=== PATIENT | male | born 1960 | race Caucasian/White ===

== ENCOUNTER 2016-07-14 11:25 | Inpatient (IN) | payer OTHER ==
--- NOTE | ~2016-07-14 | DS ---
Discharge Summary [place] [id number] [facility] [place]. [address] NAME: WENDIE WITT : 60 STATUS : ADM IN [facility]#: [id number] AGE: 56 ADM/REG DATE : 07/14/16 MR#: [id number] REPORT SERV DATE: 07/15/16 DICTATED BY: RANJAN DESAI DATE: 07/15/16 REPORT STATUS : Draft TRANSCRIBED BY: MODL DATE: 07/15/16 ADMISSION DATE: 07/14/2016 DISCHARGE DATE: 07/15/2016 FINAL HOSPITAL DIAGNOSES: 1. GI bleed felt secondary to hemorrhoids. 2. Esophagitis. 3. Nonalcoholic steatohepatitis. 4. Diabetes. 5. Obstructive sleep apnea. 6. Chronic pain. CONSULTATIONS: GI. PROCEDURES: 1. Upper and lower endoscopy done on the showing esophagitis of grade 2 esophageal varices, portal hypertensive gastropathy, erythematous mucosa in the antrum. 2. Colonoscopy showing diverticulosis and hemorrhoids. CURRENT PHYSICAL FINDINGS AND HISTORY OF PRESENT ILLNESS: Please see dictated H and P by myself. In brief, the patient is a 56-year-old male who presented with the above findings and rectal bleeding. Vital signs at time of admission, blood pressure was 166/72, temperature was 97.7 and he has remained afebrile, heart rates have been in the 60s to 70s. LAB WORK: Initial BMP was unremarkable. BNP was 312 and ammonia was 35. White count was 7.1. Initial hemoglobin was 8.6, subsequent hemoglobins were 8.4, 8.8, and 7.9. The patient's baseline is approximately 9. Platelets were 129 and 139, respectively. HOSPITAL COURSE: The patient was admitted. He was started on IV fluids. Home medications were reviewed and ordered appropriately. GI was consulted. He initially had some hypotension, which was felt secondary to medications given in the ER. GI saw him the night of admission, prepped him for a colonoscopy the following day. Serial labs were ordered and transfusion parameters given. He was initially started on antibiotics and reasonable pain medicines were given. He had an uneventful evening. The following day, he underwent his endoscopy with the above findings. He had no further difficulties and was cleared for discharge the following day by GI. I did discuss treatment plans with the patient. He voiced understanding. The patient's and family's questions were answered. DISPOSITION: The patient is discharged home. MEDICATIONS: Celexa 20 one per day, B12 1000 one per day, Ativan 1 mg b.i.d., Protonix 40, Prilosec 40. It was confirmed that patient is taking both Lyrica 100 b.i.d., Kelly 250 b.i.d., Opana ER 10 q.12, Roxicodone 10 t.i.d., Aldactone 100, Lasix 40 t.i.d., Flexeril 10 b.i.d. with one additional dose p.r.n., Amoxil 500 b.i.d., lactulose 30 b.i.d. p.r.n. constipation, cyproheptadine 4 mg t.i.d., Humulin R 75 t.i.d., Glyxambi 25/5 daily, Inderal 60, Benefiber one tablespoon t.i.d. Discharge Summary [address] [address] NAME: WENDIE WITT : 60 STATUS : ADM IN PAT#: [id number] AGE: 56 ADM/REG DATE : 07/14/16 MR#: [id number] REPORT SERV DATE: 07/15/16 DICTATED BY: RANJAN DESAI DATE: 07/15/16 REPORT STATUS : Draft TRANSCRIBED BY: JORGE ALBERTO DATE: 07/15/16 He is to return for any recurrent bleeding. Follow up in GI Clinic in two weeks. CHIQUITA/JORGE ALBERTO Ranjan Desai M.D. / [id number] CC: Ranjan Desai M.D.
--- NOTE | ~2016-07-14 | EGD ---
EGD REPORT [facility] [address] [place] [address] NAME: KAREL LICONA : 60 STATUS : ADM IN PAT#: [id number] AGE: 56 ADM/REG DATE : 07/14/16 MR#: [id number] REPORT SERV DATE: 07/15/16 DICTATED BY: MEÑO BELLAMY DATE: 07/15/16 REPORT STATUS : Draft TRANSCRIBED BY: [employer] DATE: 07/15/16 Endoscopy Center Patient Name: Karel Licona Date of : 1960 Attending MD: MEÑO BELLAMY MD Procedure Date No Time: 07/15/2016 Procedure: Colonoscopy Indications: Rectal bleeding Medicines: Monitored Anesthesia Care Complications: No immediate complications. Procedure: Pre-Anesthesia Assessment: - ASA Grade Assessment: III - A patient with severe systemic disease. After I obtained informed consent, the scope was passed under direct vision. Throughout the procedure, the patient's blood pressure, pulse, and oxygen saturations were monitored continuously. The PCF H190L [id number] was introduced through the anus and advanced to the cecum, identified by appendiceal orifice and ileocecal valve. The colonoscopy was performed without difficulty. The patient tolerated the procedure well. The quality of the bowel preparation was adequate. Findings: The digital rectal exam was normal. Pertinent negatives include no palpable rectal lesions. Multiple diverticula were found in the sigmoid colon. Hemorrhoids were found during retroflexion and were moderate. Impression: - Diverticulosis in the sigmoid colon. - Hemorrhoids. Recommendation: - Patient has a contact number available for emergencies. The signs and symptoms of potential delayed complications were discussed with the patient. Return to normal activities tomorrow. Written discharge instructions were provided to the patient. - Regular diet. - Use Analpram HC Cream 2.5%: Apply externally BID. - Use Benefiber one teaspoon PO TID. - Discharge patient to home. - Return to GI clinic in 2 months. Procedure Code(s): --- Professional --- 28503, Colonoscopy, flexible, proximal to splenic EGD REPORT [facility] [address] [place]. [address] NAME: KAREL LICONA : 60 STATUS : ADM IN [facility]#: [id number] AGE: 56 ADM/REG DATE : 07/14/16 MR#: [id number] REPORT SERV DATE: 07/15/16 DICTATED BY: MEÑO BELLAMY DATE: 07/15/16 REPORT STATUS : Draft TRANSCRIBED BY: [employer] DATE: 07/15/16 flexure; diagnostic, with or without collection of specimen(s) by brushing or washing, with or without colon decompression (separate procedure) Diagnosis Code(s): --- Professional --- K64.9, Unspecified hemorrhoids K57.30, Diverticulosis of large intestine without perforation or abscess without bleeding K62.5, Hemorrhage of anus and rectum CPT copyright 2013 [employer]. All rights reserved. The codes documented in this report are preliminary and upon ladle repairman review may be revised to meet current compliance requirements. MEÑO BELLAMY MD 07/15/2016 9:50 AM This report has been signed electronically. Number of Addenda: 0 Note Initiated On: 07/15/2016 9:06 AM Scope Withdrawal Time 0 hours 7 minutes 14 seconds [address] [facility] [place] [address]
--- NOTE | ~2016-07-14 | HP ---
History And Physical [place] [address] [place]. [address] NAME: WENDIE LICONA : 60 STATUS : ADM Cheri PAT#: [id number] AGE: 56 ADM/REG DATE : 07/14/16 MR#: [id number] REPORT SERV DATE: 07/14/16 DICTATED BY: RANJAN DESAI DATE: 07/14/16 REPORT STATUS : Draft TRANSCRIBED BY: MODL DATE: 07/14/16 DATE OF ADMISSION: 07/14/2016 CHIEF COMPLAINT: Rectal bleeding. HISTORY OF PRESENT ILLNESS: Mr. Licona is a 56-year-old male. He has a past medical history significant. 1. PATEL. 2. Diabetes. 3. KRISTINA. 4. Chronic pain and anxiety. He also has a history of esophageal varices, last banded in January 2016. 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 Reilly. The patient keeps routine followup appointments with Dr. Reilly as well as PCP. He has liver disease. He has apparently been fairly slowly progressive. He has actually done quite well since his last hospital discharge. He has not had any of the bleeding episodes. He has not in the past, been diagnosed with an elevated ammonia. His last paracentesis was several years ago, but as mentioned he has been told that his disease is progressing. He presented today after two episodes of bright red blood per rectum starting approximately 8 o'clock this morning. First bowel movement he estimated at 1 to 1-1/2 cups of stool and blood. He states it was bright red. This stool seemed to be brown stool mixed with blood. It was not black and the stool was not maroon. His second episode was approximately 3/4 cup. He has had no further since. He is specific that there was no hematemesis. Currently, he is somewhat sedate, but he was given a mg of Ativan IV. Additional history from his family they states he has been having periods where he has been just generalized weak. He feels his ascites may be more than normal. He has not had any fevers, chills. He is having some mild abdominal pain today and they state he has had periods where he just seems to get very confused and then sleepy. PAST MEDICAL HISTORY: In addition to above is hypertension, lupus, RA, and CAD. PAST SURGICAL HISTORY: He has had one stent placed. He has had tonsillectomy, adenoidectomy, and uvula surgery for his KRISTINA. MEDICATIONS: His list is currently pending. ALLERGIES: MORPHINE, ERYTHROMYCIN, TRAMADOL AND HE HAS BEEN ADVISED TO AVOID TYLENOL. FAMILY HISTORY: Both parents . Father of old age. Mother in 1989 in her late 50s. SOCIAL HISTORY: Rpll-ebqz-gnn-day smoker. No EtOH. REVIEW OF SYSTEMS: HEENT: He has complained of dizziness and weakness. 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 Apparently, an echocardiogram was done and normal. History And Physical [address] [address] NAME: WENDIE LICONA : 60 STATUS : ADM Cheri PAT#: [id number] AGE: 56 ADM/REG DATE : 07/14/16 MR#: [id number] REPORT SERV DATE: 07/14/16 DICTATED BY: RANJAN DESAI DATE: 07/14/16 REPORT STATUS : Draft TRANSCRIBED BY: JORGE ALBERTO DATE: 07/14/16 PULMONARY: Exertional dyspnea. GI: As covered in HPI. : No complaints. NEUROMUSCULOSKELETAL: Just a complaint of weakness. OBJECTIVE: VITAL SIGNS: On exam, presenting vital signs, BP was 166/72, temperature was 97, pulse 81, respirations 18. Current blood pressure is 90s over 60s, but he has been sedated, his heart rate is 72. GENERAL: He is easily arousable, awake, appropriate, answers questions appropriately. Currently complaining of generalized pain. HEENT: Normocephalic, atraumatic. NECK: Supple. HEART: Regular rate and rhythm. LUNGS: Clear to auscultation. ABDOMEN: Obese, minimally tender. Does have bowel sounds. EXTREMITIES: 1+ edema. LAB: Sodium 137, potassium 5, chloride 107, CO2 of 20, BUN and creatinine 18 and 0.95, sugars 264, calcium 7.8. Alkaline phosphatase is 301. White count 7.1, H and H are 8.6 and 30.9, platelets 129. INR is 1.2. Hemoglobin was 9.8 in April. ASSESSMENT/PLAN: 1. Episode of rectal bleeding. He presented with a hemoglobin slightly down from his previous in April. He does have a history of varices, but no reported hematemesis. We will type cross follow serial H and H and consult GI. 2. Nonalcoholic steatohepatitis, he may be having progression with his ascites and/or elevated pneumonia. We will recheck levels appropriately. 3. Diabetes, home medications. 4. Coronary artery disease, monitor present. 5. Further recommendations pending lab and any further bleeding and stability of vitals. TLF/MODL Ranjan Desai M.D. / [id number] CC: Ranjan Desai M.D.
--- NOTE | ~2016-07-14 | EGD ---
EGD REPORT [facility] [address] [place] [address] NAME: KAREL LICONA : 60 STATUS : ADM IN PAT#: [id number] AGE: 56 ADM/REG DATE : 07/14/16 MR#: [id number] REPORT SERV DATE: 07/15/16 DICTATED BY: MEÑO BELLAMY DATE: 07/15/16 REPORT STATUS : Draft TRANSCRIBED BY: [employer] DATE: 07/15/16 Endoscopy Center Patient Name: Karel Licona Date of : 1960 Attending MD: MEÑO BELLAMY MD Procedure Date No Time: 07/15/2016 Procedure: Upper GI endoscopy Indications: Hematochezia Medicines: Monitored Anesthesia Care Complications: No immediate complications. Procedure: Pre-Anesthesia Assessment: - ASA Grade Assessment: III - A patient with severe systemic disease. After obtaining informed consent, the endoscope was passed under direct vision. Throughout the procedure, the patient's blood pressure, pulse, and oxygen saturations were monitored continuously. The GIF H190 [id number] was introduced through the mouth, and advanced to the second part of duodenum. The upper GI endoscopy was accomplished without difficulty. The patient tolerated the procedure well. Findings: Moderately severe esophagitis with no bleeding was found in the entire esophagus. Brushings were obtained in the middle third of the esophagus and in the lower third of the esophagus for RORO prep. Grade II varices were found in the lower third of the esophagus. Mild portal hypertensive gastropathy was found in the gastric fundus. Patchy mildly erythematous mucosa without bleeding was found in the gastric antrum. Biopsies were taken with a cold forceps for histology. The duodenal bulb and 2nd part of the duodenum were normal. Impression: - Moderately severe candidiasis esophagitis. - Grade II esophageal varices. - Portal hypertensive gastropathy. - Erythematous mucosa in the antrum. Biopsied. - Normal duodenal bulb and 2nd part of the duodenum. Recommendation: - Await pathology results. - Nystatin suspension 1 million units PO QID for 10 days. Procedure Code(s): --- Professional --- 29242, Esophagogastroduodenoscopy, flexible, transoral; with biopsy, single or multiple EGD REPORT [facility] [address] [place]. [address] NAME: KAREL LICONA : 60 STATUS : ADM IN [facility]#: [id number] AGE: 56 ADM/REG DATE : 07/14/16 MR#: [id number] REPORT SERV DATE: 07/15/16 DICTATED BY: MEÑO BELLAMY DATE: 07/15/16 REPORT STATUS : Draft TRANSCRIBED BY: [employer] DATE: 07/15/16 Diagnosis Code(s): --- Professional --- B37.81, Candidal esophagitis I85.00, Esophageal varices without bleeding K76.6, Portal hypertension K31.89, Other diseases of stomach and duodenum K31.9, Disease of stomach and duodenum, unspecified K92.1, Melena CPT copyright 2013 [employer]. All rights reserved. The codes documented in this report are preliminary and upon care consultant review may be revised to meet current compliance requirements. MEÑO BELLAMY MD 07/15/2016 9:34 AM This report has been signed electronically. Number of Addenda: 0 Note Initiated On: 07/15/2016 9:21 AM Scope Withdrawal Time 0 hours 0 minutes 0 seconds [address] [phone]
--- NOTE | ~2016-07-14 | CN ---
Consultation Report [facility] [address] [place]. [address] NAME: WENDIE LICONA : 60 STATUS : ADM Cheri PAT#: [id number] AGE: 56 ADM/REG DATE : 07/14/16 MR#: [id number] REPORT SERV DATE: 07/14/16 DICTATED BY: OMAR YOUNG DATE: 07/14/16 REPORT STATUS : Draft TRANSCRIBED BY: MODL DATE: 07/14/16 GI CONSULTATION DATE OF CONSULTATION: 07/14/2016 REASON FOR CONSULTATION: Lower GI bleed. HISTORY OF PRESENT ILLNESS: Mr. Licona is a 56-year-old male patient, who is known to our group, who presented to [facility] on 07/14 with a chief complaint of acute- onset lower GI bleed this morning. He and his state that he was woken early this morning with complaints of fecal urgency, he went to the bathroom, he states he passed nothing, but blood. Secondary to this happening, he came in. He states that he has had two episodes at home and another episode since coming to the floor, he states that it was all bright red blood, nothing black or tarry, the states that it was a little bit more maroon when he passed blood about 30 minutes ago. He complains of some diffuse abdominal discomfort. His states it is because he has "an enlarged spleen" as well as hernias. He denies any nausea. No vomiting. He has a history of being seen by Dr. Barron in 12/2015 over at [facility] for similar presentation. At the time of that encounter, he had an EGD, where Dr. Barron found a recently bleeding grade 2 to 3 esophageal varices that he completely eradicated and banded, as well as clotted blood in the gastric fundus. He then had a repeat upper endoscopy with Dr. Lisa in February for followup of the varices, in which he only found portal hypertensive gastropathy, no varices were seen, he had a large amount of food residue in the stomach and a normal duodenum. I have discussed with the patient as well as the we will plan on prepping him for EGD and colonoscopy to be done tomorrow by Dr. Doss. Risks, benefits, alternatives, and complications were detailed for him to include, but not limited to risk of bleeding, perforation, infection, reaction to medications as well as cardiac and pulmonary side effects. They are agreeable to proceed. PAST MEDICAL HISTORY: Consists of PATEL cirrhosis, type 2 diabetes, obstructive sleep apnea, esophageal varices, splenomegaly, chronic pain and anxiety, hypertension, lupus, RA, and coronary artery disease. PAST SURGICAL HISTORY: Cardiac stents, tonsillectomy, adenoidectomy, uvula surgery for his obstructive sleep apnea. SOCIAL HISTORY: He is positive for tobacco, half pack per day. No alcohol. No illicits. He is disabled, , with children. FAMILY HISTORY: Noncontributory from a GI standpoint. ALLERGIES: MORPHINE, ERYTHROMYCIN, AND TRAMADOL. HOME MEDICATIONS: Amoxicillin, Celexa, vitamin B12, Flexeril, cyproheptadine tablet, Glyxambi, Lasix, Humulin, Constulose, Ativan, Prilosec, Roxicodone, Opana, Protonix, Lyrica, Consultation Report [address] [address] NAME: WENDIE LICONA : 60 STATUS : ADM Cheri PAT#: [id number] AGE: 56 ADM/REG DATE : 07/14/16 MR#: [id number] REPORT SERV DATE: 07/14/16 DICTATED BY: OMAR YOUNG DATE: 07/14/16 REPORT STATUS : Draft TRANSCRIBED BY: JORGE ALBERTO DATE: 07/14/16 Inderal, Aldactone, and ursodiol. REVIEW OF SYSTEMS: A 10-point review of systems has been obtained with pertinent positives addressed in the history of present illness. PERTINENT LABORATORY DATA: Sodium is 137, potassium is 5.0, BUN is 18, creatinine 0.95. White count 7.1, hemoglobin 8.6, hematocrit 30.9, platelet count 129. INR of 1.2. PHYSICAL EXAMINATION: VITAL SIGNS: Temperature is 97.7, pulse 81, respirations 18, and blood pressure is 166/72. NEURO: Reveals an alert male, resting in bed with no obvious focal deficits. GENERAL: He is cooperative. He is in distress secondary to what he states as generalized pain. He is awake, alert, and oriented x3. HEAD, EARS, EYES, NOSE, AND THROAT: Anicteric. Pupils equal, round, reactive to light and accommodation. Normocephalic and atraumatic. NECK: No JVD. No palpable nodes. Supple. LUNGS: Clear anteriorly with normal respiratory effort exhibited. Equal expansion. CARDIOVASCULAR SYSTEM: Regular rate and rhythm. ABDOMEN: Obese with minimal tenderness diffusely. Positive for bowel sounds. No tense ascites assessed. EXTREMITIES: No edema. Normal distal pulses. SKIN: Warm, dry, and intact. ASSESSMENT: 1. Lower GI bleed with bright red blood per rectum as well as maroon stool. Differential diagnosis includes diverticular, hemorrhoidal, neoplasm, or AVM. 2. History of esophageal variceal bleed in 01/2016 with six varices banded, must rule out that this could also be an upper GI bleed. 3. History of nonalcoholic steatohepatitis. 4. Type 2 diabetes. PLAN: 1. Clear liquid diet. 2. Bowel prep today. 3. EGD and colonoscopy with Dr. Doss in the morning. 4. Increase his proton pump inhibitor to three times a day dosing. 5. We will start an octreotide drip for coverage of a variceal bleed. 6. We will also start empiric Rocephin for SBP. 7. H and H q.6 hours with transfusion parameters to be given. 8. Other recommendations to follow endoscopy. DG/MODL Consultation Report [address] [place]. [address] NAME: WENDIE LICONA : 60 STATUS : ADM Cheri PAT#: [id number] AGE: 56 ADM/REG DATE : 07/14/16 MR#: [id number] REPORT SERV DATE: 07/14/16 DICTATED BY: OMAR YOUNG DATE: 07/14/16 REPORT STATUS : Draft TRANSCRIBED BY: JORGE ALBERTO DATE: 07/14/16 HARDIK Tom / [id number] CC: Syd Luna M.D.
[2016-07-14 10:33] LABS: BASOPHILS 0.3 %; BASOPHILS ABSOLUTE 0.02 10/3/uL (0.0-0.16); EOSINOPHILS 2.4 %; EOSINOPHILS ABSOLUTE 0.17 10/3/uL (0.0-0.53); ER CBC TAT 0 Hrs 05 Mins; HEMATOCRIT 30.9 % (40.0-51.0); HEMOGLOBIN 8.6 g/dL (13.6-17.8); IMMATURE GRANULOCYTES 0.8 %; IMMATURE GRANULOCYTES ABSOLUTE 0.06 10/3/uL (0.0-0.11); LYMPHOCYTES 17.7 %; LYMPHOCYTES ABSOLUTE 1.26 10/3/uL (0.67-4.30); MEAN CORPUSCULAR HEMOGLOB 17.8 pg (26.0-34.0); MEAN PLATELET VOLUME 8.4 fL (9.2-13.0); MONOCYTES 9.2 %; MONOCYTES ABSOLUTE 0.65 10/3/uL (0.21-1.20); NEUTROPHILS 69.6 %; NEUTROPHILS ABSOLUTE 4.94 10/3/uL (2.02-8.40); PLATELET COUNT 129 10/3/uL (150-400); RBC DISTRIBUTION WIDTH 19.3 % (12.0-16.0); RED CELL COUNT 4.84 10/6/uL (4.7-6.1); WHITE BLOOD CELLS 7.1 10/3/uL (4.5-10.5)
[2016-07-14 10:35] LABS: MANUAL DIFF NO %; MEAN CORPUS HGB CONC 27.8 g/dL (32.0-36.0); MEAN CORPUSCULAR VOLUME 63.8 fL (80-100)
[2016-07-14 10:42] LABS: INTERNATIONAL NORMAL RATI 1.2 UNITS (-); PARTIAL THROMBO TIME 29.9 SEC (22.5-37.2); PROTIME (NOT ORD) 14.8 SEC (12.0-14.5)
[2016-07-14 10:50] LABS: A/G RATIO 0.8 (0.7-1.9); ALBUMIN 2.7 G/DL (3.5-5.0); CALCIUM, SERUM 7.8 MG/DL (8.5-10.4); CHLORIDE, SERUM 107 MMOL/L (96-112); CREATININE 0.95 MG/DL (0.70-1.30); GFR AFRICAN AMERICAN 103 ML/MIN (>=60); GFR NON AFRICAN AMERICAN 89 ML/MIN (>=60); GLOBULIN 3.6 G/DL (2.5-4.1); GLUCOSE, SERUM 264 MG/DL (60-99); SGOT(AST) 27 U/L (5-40); SGPT(ALT) 22 U/L (5-65); SODIUM, SERUM 137 MMOL/L (135-148); TOTAL BILIRUBIN 0.6 MG/DL (0-1.2); TOTAL PROTEIN 6.3 G/DL (6.0-8.5)
[2016-07-14 10:51] LABS: ALKALINE PHOSPHATASE 301 U/L (45-117); BUN (BLOOD UREA NITROGEN) 18 MG/DL (6-23); CO2 (CARBON DIOXIDE) 20 MMOL/L (24-34)
[2016-07-14 10:56] LABS: ANISOCYTOSIS 1+ (5-10/OIF) (0-5/OIF); HYPOCHROMIA 3+ (>30/OIF) (0-2/OIF); MICROCYTES 4+ (>50/OIF) (0-5/OIF); PLATELET ESTIMATE SLT DEC (ADEQUATE)
[~2016-07-14 11:25] MED LIST: AMOXIL500C PO; ASAB PO; CONSTULOSE PO; CYANO1000T PO; DURA12 TOP; EFFIENT10 PO; EXCEDRIN MIGRA1 EAC1 PO; FIORICET OR; FLORINEF0.1 MG PO; GLUCOPHAGE1000 MG PO; HALF81 PO; HUMALOG SC; HYDROCODONE; I40 PO; INVOKANA100 MG PO; L40 PO; LANTUS SC; LEVAQUIN750 MG PO; LEVEMFLXPN SC; LEVEMIR SC; LOP50 PO; MOTRIN IB200 MG PO; NEUR300 PO; NEUR600 PO; NOVOLOG SC; NOVOLOGMIX SC; OXYCOD PO; PLAVIX PO; PRILOSEC40 MG PO; PRIN20 PO; PROTONIX PO; ROXICODONE15 MG PO; SPIRO50 PO; SYMBICORT 80/4.1 INH INH; URSO250 PO; VICTOZA18 MG/3 ML SC; WELLSR150 PO; ZANAFLEX 4 MG TA4 MG PO
[2016-07-14] MEDS ORDERED: LYRICA100 MG PO (11:46)
[2016-07-14] MEDS ORDERED: OPANA ER10 MG PO (11:46)
[2016-07-14] MEDS ORDERED: SPIR100 PO (11:47)
[2016-07-14] MEDS ORDERED: OXYCOD PO (11:47)
[2016-07-14] MEDS ORDERED: L40 PO (11:47)
[2016-07-14] MEDS ORDERED: ATV1 PO (11:47)
[2016-07-14] MEDS ORDERED: AMOXIL500 MG PO (11:48)
[2016-07-14] MEDS ORDERED: FLEX PO ×2 (11:48)
[2016-07-14] MEDS ORDERED: CONSTULOSE PO (11:49)
[2016-07-14] MEDS ORDERED: PROTONIX PO (11:49)
[2016-07-14] MEDS ORDERED: CYPROHEPTAD4 MG PO (11:49)
[2016-07-14] MEDS ORDERED: URSO250 PO (11:50)
[2016-07-14] MEDS ORDERED: PRILOSEC40 MG PO (11:50)
[2016-07-14] MEDS ORDERED: HUMULIN500CONC SC (11:55)
[2016-07-14] MEDS ORDERED: CELEXA20 PO (12:29)
[2016-07-14] MEDS ORDERED: CYANO1000T PO (12:30)
[2016-07-14] MEDS ORDERED: GLYXAMBI 25 MG1 EACH PO (12:33)
[2016-07-14] MEDS ORDERED: INDE60 PO (12:35)
[2016-07-14 16:43] LABS: HEMATOCRIT 30.1 % (40.0-51.0); HEMOGLOBIN 8.4 g/dL (13.6-17.8)
[2016-07-14 17:05] LABS: ULTRASENSITIVE TSH 1.64 MCIU/ML (0.358-3.740)
[2016-07-14 17:17] LABS: B NATRIURETIC PEPTIDE (BNP) 312.3 PG/ML (< 100.0)
[2016-07-14 23:51] LABS: HEMATOCRIT 31.2 % (40.0-51.0); HEMOGLOBIN 8.8 g/dL (13.6-17.8)
[2016-07-15 07:48] LABS: INTERNATIONAL NORMAL RATI 1.2 UNITS (-); PROTIME (NOT ORD) 15.5 SEC (12.0-14.5)
[2016-07-15 07:53] LABS: BUN (BLOOD UREA NITROGEN) 21 MG/DL (6-23); CALCIUM, SERUM 7.2 MG/DL (8.5-10.4); CHLORIDE, SERUM 107 MMOL/L (96-112); CO2 (CARBON DIOXIDE) 22 MMOL/L (24-34); GFR AFRICAN AMERICAN 97 ML/MIN (>=60); GFR NON AFRICAN AMERICAN 84 ML/MIN (>=60); GLUCOSE, SERUM 185 MG/DL (60-99); POTASSIUM, SERUM 4.8 MMOL/L (3.5-5.3); SODIUM, SERUM 137 MMOL/L (135-148)
[2016-07-15 08:00] LABS: BASOPHILS 0.6 %; BASOPHILS ABSOLUTE 0.04 10/3/uL (0.0-0.16); EOSINOPHILS 2.8 %; HEMOGLOBIN 7.9 g/dL (13.6-17.8); IMMATURE GRANULOCYTES 0.7 %; IMMATURE GRANULOCYTES ABSOLUTE 0.05 10/3/uL (0.0-0.11); LYMPHOCYTES 27.9 %; LYMPHOCYTES ABSOLUTE 1.97 10/3/uL (0.67-4.30); MEAN CORPUS HGB CONC 28.6 g/dL (32.0-36.0); MEAN CORPUSCULAR HEMOGLOB 18.3 pg (26.0-34.0); MEAN PLATELET VOLUME 9.2 fL (9.2-13.0); MONOCYTES 7.7 %; MONOCYTES ABSOLUTE 0.54 10/3/uL (0.21-1.20); NEUTROPHILS 60.3 %; NEUTROPHILS ABSOLUTE 4.25 10/3/uL (2.02-8.40); PLATELET COUNT 139 10/3/uL (150-400); RBC DISTRIBUTION WIDTH 19.1 % (12.0-16.0); RED CELL COUNT 4.31 10/6/uL (4.7-6.1); WHITE BLOOD CELLS 7.1 10/3/uL (4.5-10.5)
[2016-07-15 08:14] LABS: HEMATOCRIT 27.6 % (40.0-51.0); MANUAL DIFF NO %
[2016-07-15 10:24] LABS: ANISOCYTOSIS 1+ (5-10/OIF) (0-5/OIF)
[2016-07-15 10:25] LABS: ELLIPTOCYTES 1+ (3-10/OIF) (0-2/OIF); HELMET CELLS OCC (0-2/OIF); HYPOCHROMIA 3+ (>30/OIF) (0-2/OIF); MICROCYTES 4+ (>50/OIF) (0-5/OIF); PLATELET ESTIMATE SLT DEC (ADEQUATE); POLYCHROMASIA 1+ (2-5/OIF) (0-1/OIF); TEARDROP SHAPED RBCS OCC (0-2/OIF)
[2016-07-15 10:29] LABS: ACANTHOCYTES OCC (0-2/OIF)
[2016-07-15 15:57] LABS: HEMATOCRIT 29.7 % (40.0-51.0); HEMOGLOBIN 8.3 g/dL (13.6-17.8)
[2016-07-15] MEDS ORDERED: ANUSOL-HC25 MG PR (16:18)
[2016-07-15] MEDS ORDERED: NYS500UDL PO (16:19)
== END 2016-07-15 21:09 | disposition home or self-care (01) | DRG 394 ==
LOC: ER 11:25 → 5SO 11:47
PROVIDERS: Hospitalist; Internal Medicine; Internal Medicine Gastroenterology; Nurse Practitioner Family
PROC: 0DB68ZX Excision of Stomach, Via Natural or Artificial Opening Endoscopic, Diagnostic (ICD-10-PCS; principal; 2016-07-15 09:00)
PROC: 0DJD8ZZ Inspection of Lower Intestinal Tract, Via Natural or Artificial Opening Endoscopic (ICD-10-PCS; 2016-07-15 09:00)
DX: K64.9 Unspecified hemorrhoids (principal); K76.6 Portal hypertension; K75.81 Nonalcoholic steatohepatitis (NASH); K20.9 Esophagitis, unspecified; E11.9 Type 2 diabetes mellitus without complications; G47.33 Obstructive sleep apnea (adult) (pediatric); G89.29 Other chronic pain; K31.89 Other diseases of stomach and duodenum; K57.30 Diverticulosis of large intestine without perforation or abscess without bleeding
CPT/HCPCS: 36415; 80048; 80053; 82140; 82150; 82962; 83690; 83880; 84443; 85014; 85018; 85025; 85610; 85730; 86850; 86900; 86901; 87210; 88305; 88342; 93005; 96374; 99285; A9270-GY; C9113; J1170; J2765

== ENCOUNTER 2016-10-28 02:54 | Emergency (ER) | payer MEDICARE, OTHER ==
[2016-10-28 02:08] LABS: BASOPHILS 0.6 %; BASOPHILS ABSOLUTE 0.04 10/3/uL (0.0-0.16); EOSINOPHILS 2.7 %; EOSINOPHILS ABSOLUTE 0.18 10/3/uL (0.0-0.53); ER CBC TAT 0 Hrs 05 Mins; HEMATOCRIT 30.7 % (40.0-51.0); HEMOGLOBIN 8.7 g/dL (13.6-17.8); IMMATURE GRANULOCYTES 0.9 %; IMMATURE GRANULOCYTES ABSOLUTE 0.06 10/3/uL (0.0-0.11); LYMPHOCYTES ABSOLUTE 1.58 10/3/uL (0.67-4.30); MEAN CORPUS HGB CONC 28.3 g/dL (32.0-36.0); MEAN CORPUSCULAR HEMOGLOB 17.7 pg (26.0-34.0); MEAN CORPUSCULAR VOLUME 62.4 fL (80-100); MEAN PLATELET VOLUME 8.8 fL (9.2-13.0); MONOCYTES ABSOLUTE 0.79 10/3/uL (0.21-1.20); NEUTROPHILS 59.8 %; NEUTROPHILS ABSOLUTE 3.94 10/3/uL (2.02-8.40); PLATELET COUNT 153 10/3/uL (150-400); RBC DISTRIBUTION WIDTH 20.9 % (12.0-16.0); RED CELL COUNT 4.92 10/6/uL (4.7-6.1); WHITE BLOOD CELLS 6.6 10/3/uL (4.5-10.5)
[2016-10-28 02:09] LABS: MANUAL DIFF NO %
[2016-10-28 02:13] LABS: INTERNATIONAL NORMAL RATI 1.2 UNITS (-); PARTIAL THROMBO TIME 30.7 SEC (22.5-37.2); PROTIME (NOT ORD) 14.6 SEC (12.0-14.5)
[2016-10-28 02:21] LABS: DIRECT BILIRUBIN 0.2 MG/DL (0.0-0.4); INDIRECT BILIRUBIN(NOT ORDER) 0.3 MG/DL (0.1-0.9); TOTAL BILIRUBIN 0.5 MG/DL (0-1.2); TOTAL PROTEIN 6.5 G/DL (6.0-8.5)
[2016-10-28 02:22] LABS: BUN (BLOOD UREA NITROGEN) 32 MG/DL (6-23); CALCIUM, SERUM 7.8 MG/DL (8.5-10.4); CHEST PAIN PROFILE TAT 0 Hrs 19 Mins; CHLORIDE, SERUM 102 MMOL/L (96-112); CO2 (CARBON DIOXIDE) 24 MMOL/L (24-34); CREATININE 1.47 MG/DL (0.70-1.30); GFR AFRICAN AMERICAN 61 ML/MIN (>=60); GFR NON AFRICAN AMERICAN 53 ML/MIN (>=60); POLYCHROMASIA 1+ (2-5/OIF) (0-1/OIF); POTASSIUM, SERUM 4.6 MMOL/L (3.5-5.3); SODIUM, SERUM 134 MMOL/L (135-148); TROPONIN I <0.02 NG/ML (<0.05)
[2016-10-28 02:23] LABS: ANISOCYTOSIS 1+ (5-10/OIF) (0-5/OIF); GLUCOSE, SERUM 391 MG/DL (60-99); PLATELET ESTIMATE ADQ (ADEQUATE)
[2016-10-28 02:24] LABS: ELLIPTOCYTES 1+ (3-10/OIF) (0-2/OIF); TEARDROP SHAPED RBCS OCC (0-2/OIF)
[~2016-10-28 02:54] MED LIST changes: +AMOXIL500 MG PO; +ANUSOL-HC25 MG PR; +ATV1 PO; +CELEXA20 PO; +CYPROHEPTAD4 MG PO; +FLEX PO; +GLYXAMBI 25 MG1 EACH PO; +HUMULIN500CONC SC; +INDE60 PO; +LYRICA100 MG PO; +NYS500UDL PO; +OPANA ER10 MG PO; +SPIR100 PO
== END 2016-10-28 03:50 | disposition home or self-care (01) ==
LOC: ER 02:54
PROVIDERS: Emergency Medicine
DX: J44.1 Chronic obstructive pulmonary disease with (acute) exacerbation (principal); K74.60 Unspecified cirrhosis of liver; D64.9 Anemia, unspecified; E11.649 Type 2 diabetes mellitus with hypoglycemia without coma; F17.200 Nicotine dependence, unspecified, uncomplicated; I10 Essential (primary) hypertension; I25.10 Atherosclerotic heart disease of native coronary artery without angina pectoris; K21.9 Gastro-esophageal reflux disease without esophagitis; Z91.041 Radiographic dye allergy status; Z88.5 Allergy status to narcotic agent; Z88.8 Allergy status to other drugs, medicaments and biological substances; Z88.1 Allergy status to other antibiotic agents; Z91.040 Latex allergy status; Z79.4 Long term (current) use of insulin; Z79.899 Other long term (current) drug therapy
CPT/HCPCS: 71020; 80048; 80076; 83735; 83880; 84484; 85025; 85610; 85730; 93005; 94640; 99285; A9270-GY